=== PATIENT | male | born 1990 | race Caucasian/White ===

== ENCOUNTER 2017-01-24 14:23 | Emergency (ER) | payer SELFPAY ==
[~2017-01-24] VITALS: Ht 170.2 cm; Wt 60.0 kg
[~2017-01-24 14:23] MED LIST: AMOX400S3 PO
[2017-01-24 14:24] VITALS: BP 130/79; PULSE 74; RESP 16; TEMP 97.7; O2SAT 98
[2017-01-24] MEDS ORDERED: PERI0.126 SWISH-SPIT (15:07)
[2017-01-24] MEDS ORDERED: MAGICPED SWISH-SWAL (15:07)
[2017-01-24] MEDS ORDERED: IBUP800T23 PO (15:07)
[2017-01-24] MEDS ORDERED: AMOX500C PO (15:07)
--- NOTE | 2017-01-24 15:07 | PD ---
HPI Chief Complaint: Oral / Dental Pain or Problem Time Seen by Provider: 15:05 Travel History International Travel<30 days: No Contact w/Intl Traveler<30days: No Traveled to known affect area: No History of Present Illness HPI 26-year-old male presents to the emergency department with complaint of left lower dental pain that started this morning. He says he has poor teeth and he knows he needs to see a dentist. He took 400 mg ibuprofen about an hour ago with no relief of symptoms. Denies facial erythema, edema. Denies fever, chills, nausea, vomiting. Pain is constant and unrelieved. No known aggravating or relieving factors. No known allergies. No other modifying factors or associated signs and symptoms. PFSH Past Medical History Asthma: Yes Diminished Hearing: No Gastrointestinal Disorders: No Psychiatric: Yes (HX HBS INPT) Immunizations Current: Yes PNEUMOCCOCAL Vaccine (Year): 1 Past Surgical History Other Surgery: No Social History Alcohol Use: Yes (SOCIALLY) Tobacco Use: No ( QUIT 2 DAYS [employer]; FORMERLY 1 ppd) Substance Use: No (HX PER PT MARIJUANA TWICE PER [facility];XANAX) Allergies-Medications (Allergen,Severity, Reaction): Coded Allergies: No Known Allergies (Verified , 01/24/17) Reported Meds & Prescriptions Reported Meds & Active Scripts Active Ibuprofen 800 Mg Tab 800 Mg PO Q6HR PRN Magic Mouthwash Pediatric/Adult Liq (Lidocaine/Diphenhydr/Alum/Mg/Simeth) 60 Ml Susp 5 Ml SWISH-SWAL Q3HR PRN Each 5mL contains: Diphenydramine 4.5mg, Viscous Lidocaine 2% 10mg, Maalox Advanced Regular Strength 2.7ml Peridex Liq (Chlorhexidine Gluconate (Mouth) Liq) 0.12% Soln 15 Ml SWISH-SPIT BID 10 Days Amoxicillin 500 Mg Cap 500 Mg PO BID 10 Days Review of Systems Except as stated in HPI: all other systems reviewed are Neg Physical Exam Narrative GENERAL: Well-nourished, well-developed male patient, in no acute distress; afebrile, nontoxic-appearing SKIN: Warm and dry. HEAD: Atraumatic. Normocephalic. No facial edema, erythema, tenderness on palpation. No lymphadenopathy. EYES: Pupils equal and round. No scleral icterus. No injection or drainage. ENT: Mucosa pink and moist. No erythema or exudates. No uvular edema. No uvular , palatal, or tonsillar deviation. Airway patent. EARS: Bilateral pinnae and external canals appear within normal limits. Bilateral tympanic membranes without erythema, dullness or perforation. MOUTH: Mucous membranes moist, no lesions, tongue and gums appear normal. Poor dentition throughout. Left lower third molar with large dental cavity and decay ; surrounding gingiva is without erythema, edema, drainage. No obvious abscess. NECK: Trachea midline. No lymphadenopathy. CARDIOVASCULAR: Regular rate. RESPIRATORY: No accessory muscle use. GASTROINTESTINAL: Flat. MUSCULOSKELETAL: No obvious deformities. No clubbing. No cyanosis. No edema. NEUROLOGICAL: Awake and alert. Oriented 3. No obvious cranial nerve deficits. Motor grossly within normal limits. Normal speech. PSYCHIATRIC: Appropriate mood and affect; insight and judgment normal. Data Data Last Documented VS Vital Signs Date Time Temp Pulse Resp B/P Pulse Ox O2 Delivery O2 Flow Rate FiO2 01/24/17 14:24 97.7 74 16 130/79 98 Orders Ibuprofen (Motrin) (01/24/17 15:15) [facility] Medical Decision Making Medical Screen Exam Complete: Yes Emergency Medical Condition: Yes Medical Record Reviewed: Yes Differential Diagnosis Dentalgia, dental abscess, dental caries Narrative Course 26-year-old male with left lower dentalgia. No facial erythema or edema. Patient is afebrile and nontoxic-appearing. He denies fever, chills, nausea, vomiting. Emergency information dental sheet provided. Ibuprofen administered in the ER. Amoxicillin, ibuprofen, Magic mouthwash, Peridex mouth was prescribed for home. Instructed patient to follow up with dentist. Patient verbalizes understanding and agreement with treatment plan. Patient is medically cleared and stable for discharge. Discussed reasons to return to the emergency department. Instructed patient to follow up with primary care provider. Patient agrees with treatment plan. The patients vital signs are stable and the patient is stable for outpatient follow-up and treatment. Patient discharged home, stable and in no acute distress. Diagnosis Primary Impression: Dentalgia Referrals: Dentist Primary Care Physician Patient Instructions: Dental Abscess (ED), Dental Caries (ED), General Instructions, Toothache (ED) Departure Forms: Tests/Procedures, Work Release Enter return to work date: Jan 25, 2017 Additional Instructions: Complete full course of antibiotics Ibuprofen as directed and as needed to reduce pain and inflammation Use Magic mouthwash rinse as directed and as needed to decrease pain Use Peridex as directed for oral hygiene Warm compresses to the affected area Follow-up with dentist Follow-up with primary care provider Return to emergency department immediately with worsening of symptoms Med/Other Pt SpecificInfo: Prescription(s) given Scripts Ibuprofen 800 Mg [id number] Mg PO Q6HR PRN (PAIN) #30 TAB Ref 0 Prov:Yaneth Padilla 01/24/17 Joajaiinrifobuw-Haaqczxti-Niu-Alum-Simeth Liq (Magic Mouthwash Pediatric/Adult Liq)60 Ml Susp5 Ml SWISH-SWAL Q3HR PRN (PAIN SCALE 1 TO 10) #60 ML Ref 0 Each 5mL contains: Diphenydramine 4.5mg, Viscous Lidocaine 2% 10mg, Maalox Advanced Regular Strength 2.7ml Prov:Yaneth Padilla 01/24/17 Chlorhexidine Gluconate (Mouth) Liq (Peridex Liq)0.12% Soln15 Ml SWISH-SPIT BID 10 Days Ref 0 Prov:Yaneth Padilla 01/24/17 Amoxicillin 500 Mg [id number] Mg PO BID 10 Days Ref 0 Prov:Yaneth Padilla 01/24/17 Disposition: 01 DISCHARGE HOME Condition: Stable Yaneth Padilla Jan 24, 2017 15:07
[2017-01-24] MEDS ORDERED: IBUPROFEN 400 MG TAB PO ONE (15:15)
== END 2017-01-24 15:34 | disposition home or self-care (01) ==
LOC: NEPB 14:23
DX: K08.89 Other specified disorders of teeth and supporting structures (principal); J45.909 Unspecified asthma, uncomplicated
CPT/HCPCS: 99282

== ENCOUNTER 2017-06-18 16:58 | Emergency (ER) | payer OTHER ==
[~2017-06-18] VITALS: Ht 182.9 cm; Wt 55.0 kg
[~2017-06-18 16:58] MED LIST changes: -AMOX400S3 PO; +AMOX500C PO; +IBUP800T23 PO; +MAGICPED SWISH-SWAL; +PERI0.126 SWISH-SPIT
[2017-06-18 17:08] VITALS: BP 139/79; PULSE 78; RESP 16; TEMP 97.8; O2SAT 99
[2017-06-18] MEDS ORDERED: AUGM875T3 PO (17:47)
--- NOTE | 2017-06-18 17:48 | PD ---
HPI Chief Complaint: Cold / Flu Symptoms Time Seen by Provider: 17:44 Travel History International Travel<30 days: No Contact w/Intl Traveler<30days: No Traveled to known affect area: No History of Present Illness HPI 27-year-old male presents to emergency department for evaluation of sinus pain and pressure. Patient reports he developed nasal congestion approximately one week ago. He woke up this morning with severe pain in his right maxillary sinus. He reports subjective fever. He reports previous history of sinus infections. Symptoms severity mild. No aggravating or alleviating factors. PFSH Past Medical History Asthma: Yes Diminished Hearing: No Gastrointestinal Disorders: No Psychiatric: Yes (HX HBS INPT) Reproductive: No Immunizations Current: Yes PNEUMOCCOCAL Vaccine (Year): 1 Past Surgical History Surgical History: No Previous Surgery Other Surgery: No Social History Alcohol Use: Yes (SOCIALLY) Tobacco Use: No (1PPD) Substance Use: No (HX PER PT MARIJUANA TWICE PER [facility]K;XANAX) Allergies-Medications (Allergen,Severity, Reaction): Coded Allergies: No Known Allergies (Verified , 06/18/17) Reported Meds & Prescriptions Reported Meds & Active Scripts Active No Active Prescriptions or Reported Medications Review of Systems Except as stated in HPI: all other systems reviewed are Neg Physical Exam Narrative GENERAL: Well-nourished, well-developed patient. SKIN: Focused skin assessment warm/dry. HEAD: Normocephalic. EYES: No scleral icterus. No injection or drainage. Tenderness over the right maxillary sinus. NECK: Supple, trachea midline. No JVD or lymphadenopathy. CARDIOVASCULAR: Regular rate and rhythm without murmurs, gallops, or rubs. RESPIRATORY: Breath sounds equal bilaterally. No accessory muscle use. GASTROINTESTINAL: Abdomen soft, non-tender, nondistended. Data Data Last Documented VS Vital Signs Date Time Temp Pulse Resp B/P Pulse Ox O2 Delivery O2 Flow Rate FiO2 06/18/17 17:08 97.8 78 16 139/79 99 Room Air MDM Medical Decision Making Medical Screen Exam Complete: Yes Emergency Medical Condition: Yes Differential Diagnosis Sinusitis, allergic rhinitis, URI Narrative Course 27-year-old male with chief complaint of sinus pain and pressure. On exam patient has right frontal maxillary sinus tenderness which is consistent with his previous sinusitis. Patient be treated with antibiotics instructed to follow his primary care. Diagnosis Primary Impression: Sinusitis Qualified Code: J01.00 - Acute maxillary sinusitis, recurrence not specified Referrals: Primary Care Physician Departure Forms: Tests/Procedures, Work Release Enter return to work date: Jun 19, 2017 Scripts Amoxicillin-Clavulanate (Augmentin)875-125 Mg Tab1 Tab PO BID #20 TAB Prov:Ellen Zhu 06/18/17 Disposition: 01 DISCHARGE HOME Condition: Stable Ellen Zhu Jun 18, 2017 17:48
== END 2017-06-18 18:25 | disposition home or self-care (01) ==
LOC: PHEFT 16:58
DX: J01.00 Acute maxillary sinusitis, unspecified (principal)
CPT/HCPCS: 99283